=== PATIENT | female | born 1980 | race Caucasian/White ===

== ENCOUNTER 2025-06-16 13:30 | Emergency (ER) | payer OTHER, SELFPAY ==
[2025-06-16] VITALS (9 sets, daily range): BP systolic 112–126; BP diastolic 81–111; BMI 25.0
--- NOTE | 2025-06-16 15:07 | ED.GENMED ---
History of Present Illness
General
Chief Complaint: Fainting Sensation
Source: patient and significant other
Time Seen by Provider: 06/16/25 14:26
History of Present Illness
History of Present Illness:
This patient is a 44-year-old female presents emergency department with a near syncopal episode that she noticed this morning while she was driving to work. She describes first noticing that she felt 'warm and tingling' throughout her body while
driving. She went into work and started to feel lightheaded and weak and she was afraid to be upright because she was afraid she would pass out. She denies a sensation of spinning or movement. She went and lay down on the floor, drink some water,
and called her boss for assistance. Through this period, she denies a sensation of chest pain, headache, diaphoresis, nausea, vomiting, focal weakness, dyspnea, change in vision, headache, abdominal pain, new back pain. She denies recent urinary
symptoms, black stool, bleeding, diarrhea, or constipation. Her significant other came to her work, assisted her into the car and she went home. She ate some yogurt and liquid IV. She does note that she had not had anything to eat before this
event. She checked her vitals and her heart rate was 102 with a pressure of 90/74. She was feeling better but still wanted to get checked out. She initially went to an urgent care but had an EKG that was concerning so was referred to the
emergency department. Patient denies a history of heart disease, estrogen use, recent trauma, recent surgery. She did have a 3-hour car ride about 2 weeks ago, otherwise no recent immobilization. She denies calf pain, pleuritic chest pain,
shortness of breath.
Past History
Past History
ED Past Medical History: Psychiatric (Anxiety)
ED Past Surgical History: and Gynecological (Tubal ligation)
Social History
Tobacco: Former smoker
Alcohol: Occasional
Drug: Marijuana (Occasional)
Personal: Partner
Living: with family
Employment: Employed
Phy Exam
Physical Exam
Physical Exam:
GENERAL: Alert , in no apparent distress
EYE: pupils equal and reactive
NECK: Supple, no significant adenopathy.
ENT: o/p clr, mmm.
CARDIAC: Regular rate and rhythm .
LUNGS: Clear breath sounds bilaterally, no acute respiratory distress, no wheezes/rales/rhonchi
ABDOMEN: Soft, without focal tenderness, no r/g, no cvat
NEUROLOGICAL: Alert and oriented, no focal neuro deficits, cranial nerves II through XII intact, motor 5 out of 5, sensory intact, [id number] normal
SKIN: Warm and dry, skin intact.
MUSCULOSKELETAL: No edema, well perfused, no calf tenderness.
PSYCH: Normal and appropriate interaction.
Course
Orders/Labs/Results
Orders:
Orders
06/16/25 13:35
EKG [Electrocardiogram (*1)] Urgent
Reason for Study: QTc Monitoring
EKG- Treatment ONCE
06/16/25 14:26
Cardiac Monitoring- Treatment ONCE
06/16/25 15:02
Test Result ONCE
06/16/25 15:07
0.9% Sodium Chloride 1000 ml [Nss] 1,000 ml IV BOLUS
06/16/25 15:10
Complete Blood Count/No Diff Urgent
Comprehensive Metabolic Panel Urgent
D-Dimer Urgent
HCG, Serum Qualitative Screen Urgent
06/16/25 15:27
Urinalysis Reflex To Culture Urgent
Date Specimen was Collected: 06/16/25
Time Specimen was Collected: 15:23
Urine Microscopic Reflex Cult Urgent
Urine Culture Urgent
FER Source: U
Specimen Description:
Date Specimen was Collected: 06/16/25
Time Specimen was Collected: 15:23
06/16/25 16:27
CT Chest PE Study Urgent
Comment:
Reason For Exam: near syncope
Abnormal Lab Results
06/16/25 06/16/25
15:10 15:27
WBC 17.8 H 10^3/uL
(4.8-10.8)
Hct 36.3 L %
(37.0-47.0)
D-Dimer 1.89 H ug/mlFEU
(0.00-0.50)
Glucose 103 H mg/dl
(70-99)
Alkaline Phosphatase 31 L U/L
(38-126)
Ur Occult Blood Reflex 1+ A
(Negative)
Leukocyte Esterase Rfl 1+ A
(Negative)
Urine Bacteria (Reflex) Moderate A
(Negative)
Urine Albumin (Reflex) 2+ A
(Neg - Trace)
06/16/25 15:10
06/16/25 15:10
Vital Signs
Initial and Last Documented VS:
Initial Vital Signs
Temp Pulse Resp BP Pulse Ox
98.8 F 98 17 116/86 99
06/16/25 13:33 06/16/25 13:33 06/16/25 13:33 06/16/25 13:33 06/16/25 13:33
Last Documented Vital Signs
Temp Pulse Resp BP Pulse Ox
97.6 F 73 17 114/82 100
06/16/25 17:19 06/16/25 17:19 06/16/25 17:19 06/16/25 17:19 06/16/25 17:19
*Pulse Oximetry
SaO2: 99
Oxygen Mode of Delivery: Room air
Patient hypoxic: no
*Critical Care Note
Total Time (30-74mins, 75-104mins- exclusive of procedures): Not Applicable
Update Note
Update Note:
Patient presents to the Emergency Department with ___near syncope
Number and Complexity of Problems Addressed at the Encounter
� Chronic conditions affecting care:
� Acute Exacerbation and/or Progression of Chronic Illness:
� Differential Diagnosis includes: But not limited to vasovagal event, dehydration, electrolyte abnormalities PE, pericarditis, anxiety, etc. etc.
Amount and/or Complexity of Data to be Reviewed and Analyzed
� I performed an independent evaluation of and my interpretation is:
EKG: Read by me, normal sinus rhythm, normal axis nonspecific T wave inversions across inferolateral leads
CT:fread by rads, no pe
Xrays:
Laboratory Studies: Generally unremarkable with the exception of a nonspecific leukocytosis, no fever or focal source of infection noted on exam here. May be stress response. D-dimer elevated, nonspecific
Other:
� Review of other/old records reveals:
� Clinical information was obtained by an independent historian:
� Prescriptions/Medications Considered but not given:
� Further testing considered but not performed:
Risk of Complications and/or Morbidity or Mortality of Patient Management
� Social determinants of health affecting care:
� Discussion with other providers (PCP, Hospitalists, Consultants, etc):
� Escalation of care including admission/observation vs risk of discharge considered: Workup negative here in ER regarding patient's near syncope. May be vasovagal, suspect element of mild dehydration as contributing factor.
Clinically doubt more worrisome etiology such as arrhythmia, dissection, PE, etc. etc. Discussed with patient importance of follow-up and reasons to return to the ER.
ED Attending Note
-
Portions of this chart may have been created with voice recognition software.� Occasional wrong word or��sound alike� substitutions may have occurred due to the inherent limitations of voice recognition software.
Discharge Plan
Departure
Patient Disposition: Home (Routine Discharge)
Date of Disposition: 06/16/25
Time of Disposition: 19:13
Patient with high blood pressure during this ER visit?: Yes
Condition: Good
Discharge Problem:
Near syncope
Instructions: Near Fainting (DC), BLOOD PRESSURE
Prescriptions:
No Action
lorazepam 1 MG tablet
1 mg PO PRN PRN (Reason: sleep/ Anxiety)
eviiofd-ljstccienaoam-wowczpkm [Excedrin Migraine] 1 EACH tablet
1 ea PO PRN PRN (Reason: Migraines)
ibuprofen-acetaminophen [Advil Dual Action] 1 EACH tablet
1 - 2 ea PO PRN PRN (Reason: Migraines)
Referrals:
Jovita Calhoun DO [Family Provider, Family Practice] - Follow up in 2-3 days
Activity Restrictions/Additional Instructions:
IF YOU DEVELOP RECURRENT EPISODES OF DIZZINESS, ANY PALPITATIONS, CHEST PAIN, SEVERE HEADACHE, NECK PAIN, PASS OUT, NUMBNESS, CHANGE IN VISION, OR OTHER WORRISOME SIGNS, PLEASE RETURN TO THE ER IMMEDIATELY!
Interventions
Interventions:
*Risk Screen - Suicide Last Done: 06/16/25 13:34
*General Assessment Last Done: 06/16/25 13:34
*Neglect/Abuse Screening Last Done: 06/16/25 13:34
*ED- Fall Risk Assessment Last Done: 06/16/25 15:15
*ED COVID-19 Vaccine History Last Done: 06/16/25 13:34
ED- Cardiac Assessment Last Done: 06/16/25 15:15
ED- Neurological Assessment Last Done: 06/16/25 15:15
Discharge Date and Time
Print Language: LAO
[2025-06-16 15:20] LABS: Hematocrit 36.3 % (37.0-47.0); Hemoglobin 12.8 g/dL (12.0-16.0); Mean Corp Hgb Conc. 35.3 g/dL (33.0-37.0); Mean Corpuscular Volume 85.6 fL (81.0-99.0); Platelet Count 275 10^3/uL (130-400); Red Cell Dist. Width 12.1 % (11.5-14.5)
[2025-06-16] MEDS: NSS 1000 IV (15:25)
[2025-06-16 15:36] LABS: Urine Character Slightly Cloudy (Clear)
[2025-06-16 15:41] LABS: HCG, Serum Qualitative Screen Negative
[2025-06-16 15:43] LABS: D-Dimer 1.89 ug/mlFEU (0.00-0.50)
[2025-06-16 15:44] LABS: ALT (SGPT) 23 U/L (0-35); AST (SGOT) 24 U/L (14-36); Albumin 4.6 g/dl (3.5-5.0); Alkaline Phosphatase 31 U/L (38-126); Blood Urea Nitrogen 14 mg/dl (7-17); Calcium 10.1 mg/dl (8.4-10.2); Carbon Dioxide 24 mmol/L (22-30); Chloride 104 mmol/L (98-107); Estimated Creatinine Clearance 107 ml/min; Glucose 103 mg/dl (70-99); Potassium 4.4 mmol/L (3.5-5.1); Sodium 135 mmol/L (135-145); Total Protein 7.2 g/dl (6.3-8.2); eGFR > 60.00
[2025-06-16 16:00] LABS: Urine Red Blood Cell 0-2 /HPF (0-2); Urine Squamous Cell >30 /LPF (Few)
== END 2025-06-16 19:46 | disposition home or self-care (01) ==
LOC: EMR 13:30
PROVIDERS: EMERGENCY PHYSICIAN Emergency Medicine; FAMILY PHYSICIAN Family Medicine
DX: R55 Syncope and collapse (principal); D72.829 Elevated white blood cell count, unspecified; R03.0 Elevated blood-pressure reading, without diagnosis of hypertension; F41.9 Anxiety disorder, unspecified; Z87.891 Personal history of nicotine dependence
CPT/HCPCS: 99284; 96360; 71275; 80053; 81003; 81015; 84703; 85027; 85379; 87086; 93005; Q9967